=== PATIENT | female | born 1980 | race Caucasian/White ===

== ENCOUNTER 2021-03-01 22:51 | Emergency (ER) | payer OTHER, SELFPAY ==
[2021-03-01 23:06] VITALS: BP 105/68; PULSE 137; RESP 20; TEMP 36.1; O2SAT 100
--- NOTE | 2021-03-01 23:13 | ECG_ITS ---
Measurements Intervals [place] Rate: 126 P: 56 SD: 162 QRS: 65 QRSD: 83 T: 61 QT: 307 QTc: 446 Interpretive Statements SINUS TACHYCARDIA LOW QRS VOLTAGE IN PRECORDIAL LEADS BORDERLINE T WAVE ABNORMALITY- HIGH LATERAL LEADS BASELINE ARTIFACT- I, II, III, V2 ABNORMAL ECG Electronically Signed On 03-02-2021 7:04:33 CDT by Wes Ariza D.O.
[2021-03-01 23:30] LABS: Basophils Absolute Auto 0.1 K/mm3 (0.0-0.1); Basophils Percent Auto 0.4 % (0.2-1.2); Eosinophils Absolute Auto 0.1 K/mm3 (0-0.3); Eosinophils Percent Auto 0.4 % (0-4.4); Hematocrit 38.3 % (37.0-47.0); Hemoglobin 11.9 g/dL (12.0-15.0); Immature Granulocyte Absolute 0.08 K/mm3 (0.00-0.031); Immature Granulocyte Percent A 0.5 % (0-0.5); Immature Platelet Fraction Pct 15.3 % (0.9-11.2); Lymphocytes Absolute Auto 1.45 K/mm3 (0.9-3.2); Lymphocytes Percent Auto 9.2 % (18.3-44.2); Mean Corpuscular HGB Conc 31.1 g/dl (32-36); Mean Corpuscular Hemoglobin 23.3 pg (26-34); Monocytes Percent Auto 6.3 % (2.6-8.5); Neutrophils Absolute Auto 13.2 K/mm3 (1.3-6.7); Neutrophils Percent Auto 83.2 % (45.5-73.1); Platelet Count Result 259 k/mm3 (150-375); Red Blood Count 5.11 M/mm3 (4.2-5.4); Red Cell Distribution Width 17.9 % (11.5-14.5); White Blood Count 15.8 K/mm3 (4.5-10.0)
[2021-03-01 23:43] LABS: Alanine Aminotransferase 19 U/L (4-35); Albumin Level 4.1 g/dL (3.5-5.1); Alkaline Phosphatase 98 U/L (38-126); Anion Gap 8 mmol/L (8-16); Aspartate Amino Transferase 23 U/L (14-36); Bilirubin,Total 0.6 mg/dL (0.2-1.3); Blood Urea Nitrogen 14 mg/dL (7-17); Carbon Dioxide 26 mmol/L (22-30); Chloride 102 mmol/L (98-107); Estimated CRCL calculation 101 ml/min; Estimated Glomerular Filt Rate > 60; Glucose 247 mg/dL (65-110); Lipase 29 U/L (23-300); Potassium 4.3 mmol/L (3.4-5.0); Sodium 136 mmol/L (137-145)
--- NOTE | 2021-03-02 00:21 | PC.NURSE ---
Pt seen leaving ED waiting room by this RN, who asked if she was planning to return x 2. No response by pt to either question. Pt then seen getting into a vehicle that pulled up in the [address]. Pt removed from ED tracker.
== END 2021-03-02 00:27 | disposition left against medical advice (07) ==
PROVIDERS: Emergency Provider Emergency Medicine
DX: R10.31 Right lower quadrant pain (principal)
CPT/HCPCS: 36415; 80053; 83690; 85025; 85055; 93005; 99199

== ENCOUNTER 2022-04-16 11:15 | Emergency (ER) | payer OTHER, SELFPAY ==
--- NOTE | 2022-04-16 11:26 | ED.UPPEXIN ---
HPI - Extremity Injury (Upper) General Chief Complaint: Extremity Injury, Upper Stated Complaint: Right Shoulder Pain Time Seen by Provider: 04/16/22 11:26 Source: patient Mode of arrival: ambulatory Limitations: no limitations History of Present Illness HPI narrative: Ms. Higgins is a 41-year-old female patient presenting to the clinic today with complaints of right sided neck and shoulder pain 1-2 months. She reports that the pain started in the right side of her neck and now is in her shoulder and shoulder blade. She reports the pain is sharp when she is trying to move and feels as though it is spasming. Otherwise the pain is dull aching. she reports her pain 10 at 10 currently. Is able to lift her arm above her head however it is very painful. She denies any known injury to her neck or shoulder. States she just woke up 1 morning and had pain Related Data Allergies Allergy/AdvReac Type Severity Reaction Status Date / Time No Known Allergies Allergy Unverified 05/13/18 04:14 Review of Systems Review of Systems: Pertinent positives per HPI. Patient denies any fever, chills, rash, headache, visual changes, dizziness, cough, runny nose, sore throat, shortness of breath, chest pain, palpitations, nausea, vomiting, diarrhea, constipation, abdominal pain, or any urinary issues. PMFSH Comments At the time of my signature, I reviewed and agree with the nursing past medical, surgical, social, and family history. There is no relevant family history pertinent to the patient complaint. Exam Narrative: General: Well-developed, well nourished, in no apparent distress Head: Normocephalic, atraumatic. Cardio: Regular rate and rhythm, s1 and s2 normal, no murmur appreciated. Resp: Clear to auscultation bilaterally, no rhonchi, rales, wheezing or rubs. Musculoskeletal: No deformity, exquisitely tender to palpation over the cervical portion of the trapezius muscle on the right side, right shoulder blade, and right lateral shoulder, empty can and full can test negative however this did reproduce pain in the right shoulder and neck. Drop-arm test negative, Macias positive Limited shoulder range of motion against resistance and neck range of motion due to pain, peripheral pulse strong, no edema, no cyanosis, normal gait and station Course Course Emergency Course: Portions of this record may have been created with voice recognition software. Level of Care: Express Care Visit Vital Signs Vital signs: Vital signs reviewed MDM - Extremity Injury (Upper) MDM Narrative Medical decision making narrative: at the time of visit patient is resting comfortably on the exam table. I suspect that the patient has a cervical strain of the right trapezius musculature as well as acute shoulder pain. Questionable whether patient has shoulder tendinitis. Will place patient on a 10 day course of prednisone tapered and a muscle relaxer. Supportive measures were discussed with the patient she voiced understanding of discharge instructions and agrees to the treatment plan Differential Diagnosis Differential diagnosis: Likely other ( cervical strain over the trapezius muscle, shoulder pain, rotator cuff tear, shoulder tendinitis) Discharge Plan Discharge Clinical Impression: Strain of cervical portion of right trapezius muscle, Pain in right shoulder Patient Disposition: Home, Self-Care Condition: Stable Instructions: Antibiotic Form Additional Instructions: Toradol 60 mg IM given in the clinic today I suspect the patient has a right cervical strain of the trapezius muscle Take prednisone and Flexeril as prescribed- sedation precautions were reviewed with taking Flexeril May apply ice packs/heat pack to the affected area Consider massage Follow-up with your PCP as discussed and she may benefit from physical therapy Prescriptions: New cyclobenzaprine 10 mg tablet 10 mg PO Q8H PRN (Reason: muscle spasm) 7 Days Qty:
[2022-04-16 11:27] VITALS: BP 142/83; PULSE 103; RESP 18; TEMP 37.1; O2SAT 98
[2022-04-16] MEDS: KETOROLAC (*BKC) 60 MG/2 ML VIAL IM (11:35)
== END 2022-04-16 11:54 | disposition home or self-care (01) ==
PROVIDERS: Emergency Provider Nurse Practitioner Family
DX: S16.1XXA Strain of muscle, fascia and tendon at neck level, initial encounter (principal); X58.XXXA Exposure to other specified factors, initial encounter; M25.511 Pain in right shoulder
CPT/HCPCS: 96372; 99213; G0463; J1885

== ENCOUNTER 2023-09-04 16:06 | Emergency (ER) | payer OTHER, SELFPAY ==
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
[2023-09-04 16:07] VITALS: BP 164/94; PULSE 120; RESP 16; TEMP 36.4; O2SAT 100
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
[2023-09-04 18:54] VITALS: BP 126/87; PULSE 115; RESP 15; O2SAT 100
== END 2023-09-04 18:55 | disposition home or self-care (01) ==
PROVIDERS: Emergency Provider Physician Assistant
DX: S50.12XA Contusion of left forearm, initial encounter (principal); E11.9 Type 2 diabetes mellitus without complications; Y04.2XXA Assault by strike against or bumped into by another person, initial encounter
CPT/HCPCS: 73060; 73090; 99284